=== PATIENT | male | born 1960 | race Caucasian/White ===

== ENCOUNTER 2016-05-02 18:00 | Inpatient (IN) | payer OTHER ==
[~2016-05-02] VITALS: Ht 193 cm; Wt 118.2 kg
--- NOTE | 2016-05-02 19:59 | DIAGNOSTIC IMAGING REPORT ---
PROCEDURE: XR CHEST 1 VIEW INDICATION: CHEST PAIN TECHNIQUE: Portable AP view (1845 hours). COMPARISON: Compared to chest x-ray on 10/13/2011. FINDINGS: Findings suggest mild parenchymal change at the left medial lung base. Right lung is clear. Heart and mediastinum are normal. Thorax is normal. IMPRESSION: 1. Findings suggest mild parenchymal changes at the left medial lung base (retrocardiac). Consider underlying atelectasis or pneumonia. 2. Otherwise negative chest. 3. Findings discussed with Dr. Jackson.
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
--- NOTE | 2016-05-02 21:09 | ED ORDER SUMMARY ---
..... Patient: VALENTIN GERBER JR OrderSheet [facility] VisitID: [id number] [address] [place] [address] 55y, M Registration Date/Time: 05/02/2016 ORDER SHEET Weight: 120.2 kg (stated) Allergies: No Known Drug Allergy GENERAL ORDERS: CBC w Diff Urgent (18:33 05/02/2016 Stephy R.N. verbal order read back to Adriana CLARKE) (18:34 Wadeelli R.N.) CMP Urgent (18:33 05/02/2016 Stephy R.N. verbal order read back to Adriana CLARKE) (18:34 Stephy R.N.) Blood Culture (No) (N/A) Urgent (18:44 05/02/2016 Adriana CLARKE) (Ack 18:46 LNations ER Tech1) (19:02 Stephy R.N.) Chest 1V Urgent (18:44 05/02/2016 Adriana CLARKE) (Ack 18:47 LNations ER Tech1) (19:08 MCampbell) Ferryboat Operator (Continuous) (18:44 05/02/2016 Adriana CLARKE) (Ack 18:46 LNations ER Tech1) (19:33 Stephy R.N.) TSH Urgent (18:45 05/02/2016 Adriana CLARKE) (Ack 18:46 LNations ER Tech1) (19:02 Stephy R.N.) Cardiac Panel Stat (18:45 05/02/2016 Adriana CLARKE) (Ack 18:47 LNations ER Tech1) (19:02 Stephy R.N.) BNP Urgent (18:45 05/02/2016 Adriana CLARKE) (Ack 18:47 LNations ER Tech1) (19:02 Stephy R.N.) Lactate, Serum Urgent (18:45 05/02/2016 Adriana CLARKE) (Ack 18:47 LNations ER Tech1) (19:27 AMcQuoid ER Tech1) PCT (Procalcitonin) Urgent (18:45 05/02/2016 Adriana CLARKE) (Ack 18:47 LNations ER Tech1) (19:27 AMcQuoid ER Tech1) CRP Urgent (18:45 05/02/2016 Adriana CLARKE) (Ack 18:47 LNations ER Tech1) (19:27 AMcQuoid ER Tech1) Pulse oximeter (18:45 05/02/2016 Adriana CLARKE) (Ack 18:46 LNations ER Tech1) (19:33 omanelli R.N.) EKG - ER Stat (18:45 05/02/2016 Adriana CLARKE) (Ack 18:46 LNations ER Tech1) (19:27 AMcQuoid ER Tech1) UA-Culture if indicated Urgent (18:50 05/02/2016 Adriana CLARKE) (Ack 18:54 LNations ER Tech1) (22:26 JRomanelli R.N.) Urine Drug Screen Urgent (18:50 05/02/2016 Adriana CLARKE) (Ack 18:54 LNations ER Tech1) (22:26 omanelli R.N.) US Venous Left Urgent (19:30 05/02/2016 Adriana CLRAKE) (Ack 19:32 AMcQuoid ER Tech1) (22:26 JRomanelli R.N.) Tibia/Fibula Left Urgent (19:50 05/02/2016 Adriana CLARKE) (Ack 19:51 AMcQuoid ER Tech1) (20:28 JRomanelli R.N.) MEDICATION ORDERS: IV FLUIDS: IV Saline Lock (18:33 05/02/2016 Stephy R.N. verbal order read back to Adriana CLARKE) (18:34 Wadeelli R.N.) IV NS : initial bolus 1000 mL (1000 mL/hr), then 500 mL/hr for 2h (NOW); Routine (18:44 05/02/2016 Adriana CLARKE) (19:04 Stephy R.N.) Toradol IV 30 mg (NOW) (18:50 05/02/2016 Adriana CLARKE) (19:07 Stephy R.N.) Ativan IV 0.5 mg (NOW) (18:50 05/02/2016 Adriana CLARKE) (19:08 Stephy R.N.) Vancomycin IV 2 gm/500 mL (NOW) (19:32 05/02/2016 Adriana CLARKE) (20:19 Stephy Hernández.Hilario) Invanz IV 1 gm (NOW) (19:32 05/02/2016 Adriana CLARKE) (19:57 Stephy Hernández.Hilario) Levaquin IV 750 mg/150 mL (NOW) (21:15 05/02/2016 Adriana CLARKE) (23:30 Rafa R.N.) Dilaudid IV 1 mg (NOW) (22:33 05/02/2016 Rafa R.N. verbal order read back to Peggy Jacobson) (22:42 Rafa RAdrianoNAdriano) ORDER SHEET NOTES: [Electronically signed by Destiny Garcia R.N. (23:39 05/02/2016)] [Electronically signed by Junito Jackson MD (15:31 05/03/2016)] [Electronically locked/signed by Destiny Garcia R.N. (23:39 05/02/2016)]
--- NOTE | 2016-05-02 21:09 | ED ORDER SUMMARY ---
..... Patient: VALENTIN GERBER JR OrderSheet [facility] VisitID: [id number] [address] [place] [address] 55y, M Registration Date/Time: 05/02/2016 ORDER SHEET Weight: 120.2 kg (stated) Allergies: No Known Drug Allergy GENERAL ORDERS: CBC w Diff Urgent (18:33 05/02/2016 Stephy R.N. verbal order read back to Adriana CLARKE) (18:34 Wadeelli R.N.) CMP Urgent (18:33 05/02/2016 Stephy R.N. verbal order read back to Adriana CLARKE) (18:34 Stephy R.N.) Blood Culture (No) (N/A) Urgent (18:44 05/02/2016 Adriana CLARKE) (Ack 18:46 LNations ER Tech1) (19:02 Stephy R.N.) Chest 1V Urgent (18:44 05/02/2016 Adriana CLARKE) (Ack 18:47 LNations ER Tech1) (19:08 MCampbell) Lining Feller Blindstitch (Continuous) (18:44 05/02/2016 Adriana CLARKE) (Ack 18:46 LNations ER Tech1) (19:33 Stephy R.N.) TSH Urgent (18:45 05/02/2016 Adriana CLARKE) (Ack 18:46 LNations ER Tech1) (19:02 Stephy R.N.) Cardiac Panel Stat (18:45 05/02/2016 Adriana CLARKE) (Ack 18:47 LNations ER Tech1) (19:02 Stephy R.N.) BNP Urgent (18:45 05/02/2016 Adriana CLARKE) (Ack 18:47 LNations ER Tech1) (19:02 Stephy R.N.) Lactate, Serum Urgent (18:45 05/02/2016 Adriana CLARKE) (Ack 18:47 LNations ER Tech1) (19:27 AMcQuoid ER Tech1) PCT (Procalcitonin) Urgent (18:45 05/02/2016 Adriana CLARKE) (Ack 18:47 LNations ER Tech1) (19:27 AMcQuoid ER Tech1) CRP Urgent (18:45 05/02/2016 Adriana CLARKE) (Ack 18:47 LNations ER Tech1) (19:27 AMcQuoid ER Tech1) Pulse oximeter (18:45 05/02/2016 Adriana CLARKE) (Ack 18:46 LNations ER Tech1) (19:33 omanelli R.N.) EKG - ER Stat (18:45 05/02/2016 Adriana CLARKE) (Ack 18:46 LNations ER Tech1) (19:27 AMcQuoid ER Tech1) UA-Culture if indicated Urgent (18:50 05/02/2016 Adriana CLARKE) (Ack 18:54 LNations ER Tech1) (22:26 JRomanelli R.N.) Urine Drug Screen Urgent (18:50 05/02/2016 Adriana CLARKE) (Ack 18:54 LNations ER Tech1) (22:26 omanelli R.N.) US Venous Left Urgent (19:30 05/02/2016 Adriana CLARKE) (Ack 19:32 AMcQuoid ER Tech1) (22:26 JRomanelli R.N.) Tibia/Fibula Left Urgent (19:50 05/02/2016 Adriana CLARKE) (Ack 19:51 AMcQuoid ER Tech1) (20:28 JRomanelli R.N.) MEDICATION ORDERS: IV FLUIDS: IV Saline Lock (18:33 05/02/2016 Stephy R.N. verbal order read back to Adriana CLARKE) (18:34 Wadeelli R.N.) IV NS : initial bolus 1000 mL (1000 mL/hr), then 500 mL/hr for 2h (NOW); Routine (18:44 05/02/2016 Adriana CLARKE) (19:04 Stephy R.N.) Toradol IV 30 mg (NOW) (18:50 05/02/2016 Adriana CLARKE) (19:07 Stephy R.N.) Ativan IV 0.5 mg (NOW) (18:50 05/02/2016 Adriana CLARKE) (19:08 Stephy R.N.) Vancomycin IV 2 gm/500 mL (NOW) (19:32 05/02/2016 Adriana CLARKE) (20:19 Stephy Hernández.Hilario) Invanz IV 1 gm (NOW) (19:32 05/02/2016 Adriana CLARKE) (19:57 Stephy Hernández.Hilario) Levaquin IV 750 mg/150 mL (NOW) (21:15 05/02/2016 Adriana CLARKE) (23:30 Rafa R.N.) Dilaudid IV 1 mg (NOW) (22:33 05/02/2016 Rafa R.N. verbal order read back to Peggy Jacobson) (22:42 Rafa RAdrianoNAdriano) ORDER SHEET NOTES: [Electronically signed by Destiny Garcia R.N. (23:39 05/02/2016)] [Electronically signed by Junito Jackson MD (15:31 05/03/2016)] [Electronically locked/signed by Destiny Garcia R.N. (23:39 05/02/2016)]
--- NOTE | 2016-05-02 22:15 | Progress Note ---
Subjective General Full note dictated 55 y.o male who stopped all his med around 1 year ago for heart etc who has 3-4 day hx of pain in L leg . Has hand lesion and sores as well. In ER with lung lesion on CXR retrocardiac, hand sore, leg cellulitis. Plan: Admit for abx IV, r/o endocarditis, ? embolic hand lesion , lung lesion and or cellulitis with murmur. Hx of CAD but no heart valve issues. Patient is DNR/DNI
--- NOTE | 2016-05-02 22:37 | DIAGNOSTIC IMAGING REPORT ---
PROCEDURE: XR TIBIA AND FIBULA - LEFT INDICATION: CELLULITIS TECHNIQUE: AP and lateral views. COMPARISON: None. 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 There is an old healed fracture of the left proximal fibula. Moderate generalized soft tissue edema of the left lower extremity. IMPRESSION: 1. Soft tissue swelling. 2. Otherwise negative left tibia and fibula.
--- NOTE | 2016-05-02 22:38 | DIAGNOSTIC IMAGING REPORT ---
PROCEDURE: US VENOUS - LEFT EXT INDICATION: SWELLING TECHNIQUE: Color Doppler duplex imaging of the deep and superficial venous system without and with compression. COMPARISON: None. FINDINGS: Deep and superficial venous system of the left lower extremity is within normal limits. There is no evidence of deep vein thrombosis or superficial thrombophlebitis. IMPRESSION: 1. Negative venous ultrasound of the left lower extremity.
--- NOTE | 2016-05-02 23:26 | HISTORY AND PHYSICAL ---
ADMITTED: 05/02/2016 CHIEF COMPLAINT: 1. Left leg pain, swelling, back pain and chronic spasms HISTORY OF PRESENT ILLNESS: The patient is a 55-year-old male who presented to the emergency department today with about 3-4 day history of worsening pain in his left lower extremity. He states he has always got some chronic back pain and he has also been having some chronic spasms that have gone up from his leg to his back. He has noted a little bit of a sore on his right hand as well and it started out as a little sore and then kind of blistered open and has now been trying to just watch that. He has had some fevers and has just not felt well. Denies any active chest pain, shortness of breath. MEDICAL/SURGICAL HISTORY: Past medical history: He has had arterial problems in his heart, was going to have a back surgery at one point and then was thinking about having a stent that treated, that did not actually happen. He has had an angioclipping in 1983 in his brain. He has had no previous injuries. He has got a history of hepatitis C. MEDICATIONS: 1. None. ALLERGIES: 1. NONE. SOCIAL HISTORY: He is single. Judaism. Has gone through twelfth grade. Has worked in [employer] in the past. He has smoked and he is currently smoking 2 cartons per month. He also smokes a little marijuana. Denies any alcohol or drug use. FAMILY HISTORY: Heart disease in mother and father. Also has a brother with multiple sclerosis. CODE STATUS: DO NOT RESUSCITATE/DO NOT INTUBATE. REVIEW OF SYSTEMS: Negative for GI or problems. He also has had frequent urination on his review of systems as mentioned above where he is peeing every hour, he states. PHYSICAL EXAMINATION: VITAL SIGNS: Blood pressure is 124/88, heart rate of 102, respirations 18, he is saturating 93% on room air. His temperature is 101.3, and he has significant back pain. GENERAL: He is an alert male who is laying on his side in the emergency department, appears to be in no acute distress. HEENT: Extraocular movements intact. Pupils equal, round, reactive to light. Oropharynx is clear with moist mucous membranes. He has got poor dentition with missing teeth above. NECK: Supple without lymphadenopathy. LUNGS: Clear to auscultation bilaterally. HEART: Regular rate and rhythm with a 2-3/6 systolic ejection murmur at the right lower sternal border. ABDOMEN: Obese, soft, it is nontender, nondistended. GENITOURINARY: Deferred. RECTAL: Deferred. EXTREMITIES: His right hand has superficial ulceration at the middle finger, it is kind at the knuckle, base of the middle MCP joint. LAB/IMAGING: Chest x-ray: Shows a round retrocardiac infiltrate. CBC: White count is 9.0, hematocrit 40.1, platelets of 138,000, neutrophils 76, lymphs of 11, monocytes 11, eosinophils 0.6, basophils 0.3. Comprehensive metabolic panel: Glucose 167, BUN of 14, creatinine 1.1, sodium 136, potassium 4.2, chloride of 100, HCO3 24, calcium 8.4, total protein 7, magnesium of 1.7. Albumin 2.6, total bili 0.4, alk phos 106, AST of 44, ALT of 48. CPK 78. Troponin I less than 0.05. Procalcitonin less than 0.05. TSH was 1.414. CRP of 10.2. BNP of 82. Chest x-ray: As mentioned, was the possible retrocardiac pneumonia. Lactic acid 1.6. EKG: Shows sinus rhythm, possible left atrial enlargement, no acute ST-T wave changes and nonspecific intraventricular conduction delay. IMPRESSION: 1. Fever. 2. Murmur. 3. Retrocardiac lesion or pneumonia. 4. Cellulitis. 5. History of heart abnormality. 6. Possible embolic sore on his hand. 7. Elevated CRP. 8. Normal lactic acid, procalcitonin and white count. PLAN: Admit him to the hospital for IV antibiotics. We will treat the cellulitis , the pneumonia, also wait for blood cultures. I will get an echocardiogram for his murmur and possible embolic lesions in hand and possibly even the retrocardiac pneumonia or cellulitis in his leg and we will potentially need to have further evaluation of his heart with transesophageal echocardiogram, if this is normal, and he does have blood cultures positive. We will follow his request for DO NOT RESUSCITATE/DO NOT INTUBATE status, and hold off on telemetry at this time due to his desire for no interventions of cardiopulmonary resuscitation sort. We will treat him with a small amount of IV fluids and monitor his blood counts.
[2016-05-03] VITALS (7 sets, daily range): BP systolic 104–131; BP diastolic 60–80
[2016-05-03] MEDS ORDERED: ASPIRIN325 MG PO (00:33)
--- NOTE | 2016-05-03 15:31 | ED MED RECONCILIATION SUMMARY ---
Patient: ZABRINA VALENTIN Meyer JR Medication Reconciliation Report [facility] VisitID: [id number] [address] [place] [address] 55y, M Registration Date/Time: 05/02/2016 Weight: 120.2 kg Height/Length: 76 in. BMI: 32.3 ALLERGIES: No Known Drug Allergy The patient's Home Medications are listed below: THE FOLLOWING MEDICATIONS NEED TO BE RECONCILED: ASA Oral, prn The source(s) of the original Home Medication information: patient The following Medications were given to the patient in the Emergency Department: IV NS IV Fluids bolus 0, then 1000 mL/hr, administered: 05/02/2016 6:49:00 PM Toradol [IVP] IVP 30 mg, administered: 05/02/2016 6:57:00 PM Ativan [IVP] IVP 0.5 mg, administered: 05/02/2016 7:01:00 PM Invanz [IVP] IVP 1 gm, administered: 05/02/2016 7:47:00 PM Vancomycin IVPB bolus 0, then 2000mg, administered: 05/02/2016 8:14:00 PM Dilaudid [IVP] IVP 1 mg, administered: 05/02/2016 10:42:00 PM Levaquin [IVPB] IVPB bolus 0, then 750 mg 150 mL/hr, administered: 05/02/2016 11:30:00 PM The following Medications were prescribed to the patient: None.
--- NOTE | 2016-05-03 15:31 | ED MED RECONCILIATION SUMMARY ---
Patient: ZABRINA VALENTIN Meyer JR Medication Reconciliation Report [facility] VisitID: [id number] [address] [place] [address] 55y, M Registration Date/Time: 05/02/2016 Weight: 120.2 kg Height/Length: 76 in. BMI: 32.3 ALLERGIES: No Known Drug Allergy The patient's Home Medications are listed below: THE FOLLOWING MEDICATIONS NEED TO BE RECONCILED: ASA Oral, prn The source(s) of the original Home Medication information: patient The following Medications were given to the patient in the Emergency Department: IV NS IV Fluids bolus 0, then 1000 mL/hr, administered: 05/02/2016 6:49:00 PM Toradol [IVP] IVP 30 mg, administered: 05/02/2016 6:57:00 PM Ativan [IVP] IVP 0.5 mg, administered: 05/02/2016 7:01:00 PM Invanz [IVP] IVP 1 gm, administered: 05/02/2016 7:47:00 PM Vancomycin IVPB bolus 0, then 2000mg, administered: 05/02/2016 8:14:00 PM Dilaudid [IVP] IVP 1 mg, administered: 05/02/2016 10:42:00 PM Levaquin [IVPB] IVPB bolus 0, then 750 mg 150 mL/hr, administered: 05/02/2016 11:30:00 PM The following Medications were prescribed to the patient: None.
--- NOTE | 2016-05-03 15:31 | ED DISCHARGE INSTRUCTIONS ---
Patient: VALENTIN GERBER General Instructions [facility] VisitID: [id number] [address] [place] [address] 55y, M Registration Date/Time: 05/02/2016 Cellulitis of the left leg Erosion left hand Fever LLL pneumonia Mild chest pain uinclear etiology. (Electronically signed by Junito Jackson MD 05/03/2016 15:31)
--- NOTE | 2016-05-03 15:31 | ED MAR SUMMARY ---
..... Medication Administration Record [facility] [address] [place] [address] Patient: VALENTIN GERBER Visit ID: [id number] 55y, M Weight: 120.2 kg Height/Length: 76 in BMI: 32.3 ALLERGIES: No Known Drug Allergy Start 18:49 05/02/2016 Osmar Ramos R.N., Stop 22:14 05/02/2016 Destiny Garcia R.N. Medication Administered: IV NS (SALINE), Dose: IV Fluids over 60 minute(s), Rate: 1000 mL/hr, Dispensed: 1000 mL bag, Site: #1 right wrist. Medication Ordered: IV NS : initial bolus 1000 mL (1000 mL/hr), then 500 mL/hr for 2h (NOW); Routine. Given 18:57 05/02/2016 Osmar Ramos R.N. Medication Administered: TORADOL [IVP], Dose: 30 mg IVP over 2 minute(s), Site: #1 right wrist. Medication Ordered: Toradol IV 30 mg (NOW). Given 19:01 05/02/2016 Osmar Ramos R.N. Medication Administered: ATIVAN [IVP] (LORAZEPAM), Dose: 0.5 mg IVP over 2 minute(s), Site: #1 right wrist. Medication Ordered: Ativan IV 0.5 mg (NOW). Given 19:47 05/02/2016 Osmar Ramos R.N. Medication Administered: INVANZ [IVP], Dose: 1 gm IVP over 30 minute(s), Site: #1 right wrist. Medication Ordered: Invanz IV 1 gm (NOW). Start 20:14 05/02/2016 Osmar Ramos R.N., Stop 22:18 05/02/2016 Jazmin Philip R.N. Medication Administered: Vancomycin *, Dose: 2000mg * IVPB. Medication Ordered: Vancomycin IV 2 gm/500 mL (NOW). Given 22:42 05/02/2016 Destiny Garcia R.N. Medication Administered: DILAUDID [IVP] (HYDROMORPHONE HCL PF), Dose: 1 mg IVP over 2 minute(s), Site: #1. Medication Ordered: Dilaudid IV 1 mg (NOW). Start 23:30 05/02/2016 Destiny Garcia RAdrianoN., Continued Upon Disposition 23:31 05/02/2016 Destiny Garcia R.N. Medication Administered: LEVAQUIN [IVPB] (LEVOFLOXACIN), Dose: 750 mg IVPB over 1.5 hour(s), Rate: 150 mL/hr, Site: #1. Medication Ordered: Levaquin IV 750 mg/150 mL (NOW).
--- NOTE | 2016-05-03 15:31 | ED DISCHARGE INSTRUCTIONS ---
Patient: VALENTIN GERBER General Instructions [facility] VisitID: [id number] [address] [place] [address] 55y, M Registration Date/Time: 05/02/2016 Cellulitis of the left leg Erosion left hand Fever LLL pneumonia Mild chest pain uinclear etiology. (Electronically signed by Junito Jackson MD 05/03/2016 15:31)
--- NOTE | 2016-05-03 15:31 | ED MAR SUMMARY ---
..... Medication Administration Record [facility] [address] [place] [address] Patient: VALENTIN GERBER Visit ID: [id number] 55y, M Weight: 120.2 kg Height/Length: 76 in BMI: 32.3 ALLERGIES: No Known Drug Allergy Start 18:49 05/02/2016 Osmar Ramos R.N., Stop 22:14 05/02/2016 Destiny Garcia R.N. Medication Administered: IV NS (SALINE), Dose: IV Fluids over 60 minute(s), Rate: 1000 mL/hr, Dispensed: 1000 mL bag, Site: #1 right wrist. Medication Ordered: IV NS : initial bolus 1000 mL (1000 mL/hr), then 500 mL/hr for 2h (NOW); Routine. Given 18:57 05/02/2016 Osmar Ramos R.N. Medication Administered: TORADOL [IVP], Dose: 30 mg IVP over 2 minute(s), Site: #1 right wrist. Medication Ordered: Toradol IV 30 mg (NOW). Given 19:01 05/02/2016 Osmar Ramos R.N. Medication Administered: ATIVAN [IVP] (LORAZEPAM), Dose: 0.5 mg IVP over 2 minute(s), Site: #1 right wrist. Medication Ordered: Ativan IV 0.5 mg (NOW). Given 19:47 05/02/2016 Osmar Ramso R.N. Medication Administered: INVANZ [IVP], Dose: 1 gm IVP over 30 minute(s), Site: #1 right wrist. Medication Ordered: Invanz IV 1 gm (NOW). Start 20:14 05/02/2016 Osmar Ramos R.N., Stop 22:18 05/02/2016 Jazmin Philip R.N. Medication Administered: Vancomycin *, Dose: 2000mg * IVPB. Medication Ordered: Vancomycin IV 2 gm/500 mL (NOW). Given 22:42 05/02/2016 Destiny Garcia R.N. Medication Administered: DILAUDID [IVP] (HYDROMORPHONE HCL PF), Dose: 1 mg IVP over 2 minute(s), Site: #1. Medication Ordered: Dilaudid IV 1 mg (NOW). Start 23:30 05/02/2016 Destiny Garcia RAdrianoN., Continued Upon Disposition 23:31 05/02/2016 Destiny Garcia R.N. Medication Administered: LEVAQUIN [IVPB] (LEVOFLOXACIN), Dose: 750 mg IVPB over 1.5 hour(s), Rate: 150 mL/hr, Site: #1. Medication Ordered: Levaquin IV 750 mg/150 mL (NOW).
--- NOTE | 2016-05-03 17:28 | Progress Note ---
Subjective General Pt seen and examined. Patient is stable and has complaints stemming from the swelling in his leg. Patient vehemently denies taking opiods, amphetamines despite his urine being positive for the aforementioned. Patients cellulitis is improved. Constitutional Denies: Fever, Chills, Sweats, Weakness, Malaise, Other. Eyes Denies: Pain, Vision Change, Conjunctival Inflammation, Eyelid Inflammation, Redness, Other. ENT Denies: Ear Pain, Ear Discharge, Nose Pain, Nasal Discharge, Nasal Congestion, Mouth Pain, Mouth Swelling, Throat Pain, Throat Swelling, Other. Respiratory Denies: Cough, Dry, SOB w/exertion, Wheezing, Hemoptysis, Pleuritic Pain, Sputum , Other. Cardiovascular Denies: Chest Pain, Palpitations, Orthopnea, PND, Edema, Light-headedness, Other. Gastrointestinal Denies: Nausea, Vomiting, Abdominal Pain, Diarrhea, Constipation, Melena, Hematochezia, Other. Genitourinary Denies: Dysuria, Frequency, Incontinence, Hematuria, Retention, Other. Musculoskeletal Denies: Neck Pain, Shoulder Pain, Arm Pain, Back Pain, Hand Pain, Leg Pain, Foot Pain, Other. Skin Other. Physical Exam Vital Signs / I&Os Vital Signs Date Time Temp Pulse Resp B/P Pulse O2 O2 Flow FiO2 Ox Delivery Rate 05/03 1438 98.1 75 24 116/67 100 Room Air 05/03 1026 98.6 82 18 115/61 99 Room Air 05/03 0943 Room Air 05/03 0709 98.4 92 20 130/62 100 Room Air 0.0 05/03 0427 98.4 101 20 131/63 98 Room Air 05/03 0013 98.8 90 18 115/67 100 Room Air 0.0 General Appearance Alert, Oriented X3, No acute distress HEENT Normal exam, Moist mucous membranes Lungs Clear to auscultation, Normal air movement Cardiovascular Regular rate and rhythm, Normal S1 and S2, No murmurs, gallops, rubs Abdomen Soft, No tenderness Extremities No cyanosis, No clubbing, left leg swelling venous stasis erythema Skin two punctate lesions one located on the left hand and one on the pretibial area of the left leg Neurological Normal speech, Normal tone Psych/Mental Status Mental status normal LAB Results Laboratory Tests 05/02 05/02 05/02 05/02 05/02 1815 1835 1835 1835 1835 Chemistry Plasma Sodium (136 - 145 mmol/L) 136 Plasma Potassium (3.5 - 5.1 mmol/L) 4.2 Plasma Chloride (98 - 107 mmol/L) 100 CO2 (Enzymatic) (21 - 32 mmol/L) 24 BUN (7 - 18 mg/dL) 14 Creatinine (0.6 - 1.3 mg/dL) 1.1 Est GFR ( Amer) (mL/min) >60 Est GFR (Non-Af Amer) (mL/min) >60 Glucose (70 - 110 mg/dL) 167 Plasma Calcium (8.5 - 10.1 mg/dL) 8.4 Plasma Magnesium (1.8 - 2.4 mg/dL) 1.7 Total Bilirubin (0.0 - 1.0 mg/dL) 0.4 AST (15 - 37 U/L) 44 ALT (12 - 78 U/L) 48 Alkaline Phosphatase (46 - 116 U/L) 106 Creatine Kinase (24 - 260 U/L) 78 Troponin (0.00 - 1.5 ng/mL) <0.05 C-Reactive Protein (0.0 - 0.9 mg/dL) 10.2 B-Natriuretic Peptide (5 - 100 pg/ml) 82.4 Total Protein (6.4 - 8.2 g/dL) 7.0 Albumin (3.3 - 5.0 g/dL) 2.6 Procalcitonin (0 - 0.5 ng/mL) <0.5 TSH 3rd Generation (0.34 - 3.74 uIU/mL) 1.414 Hematology WBC (4.5 - 11.5 K/uL) 9.0 RBC (4.50 - 5.90 M/uL) 4.66 Hgb (13.5 - 17.5 gm/dL) 13.6 Hct (41.0 - 53.0 %) 40.1 MCV (80 - 100 fL) 86 MCH (26 - 34 pg) 29 RDW (11.6 - 14.8 %) 13.0 Neut % (Auto) (50 - 75 %) 76.6 Lymph % (Auto) (25 - 40 %) 11.4 [place] % (Auto) (3 - 14 %) 11.1 Eos % (Auto) (0 - 4 %) 0.6 Baso % (Auto) (0 - 2 %) 0.3 Plt Count, EDTA (150 - 400 K/uL) 138 PUBS MCHC (31 - 37 g/dL) 34 05/02 05/02 05/02 1845 1900 2155 Chemistry Lactic Acid (0.4 - 2.0 mmol/L) 1.6 Hematology WBC Cancelled RBC Cancelled Hgb Cancelled Hct Cancelled MCV Cancelled MCH Cancelled RDW Cancelled Plt Count, EDTA Cancelled PUBS MCHC Cancelled Toxicology Urine Opiates Screen (NEGATIVE) NEGATIVE Urine Methadone Screen (NEGATIVE) NEGATIVE Ur Barbiturates Screen (NEGATIVE) NEGATIVE U Amphetamin/Meth Scrn (NEGATIVE) POSITIVE MDMA (Ecstasy) Screen (NEGATIVE) POSITIVE U Benzodiazepines Scrn (NEGATIVE) NEGATIVE Urine Cocaine Screen (NEGATIVE) NEGATIVE U Cannabinoids Screen (NEGATIVE) POSITIVE Urines Urine Color YELLOW Urine Appearance CLEAR Urine pH (5.0 - 8.0) 6.5 Ur Specific Victor (1.010 - 1.030) 1.020 Urine Protein (NEGATIVE) NEGATIVE Urine Ketones (NEGATIVE) NEGATIVE Urine Blood (NEGATIVE) NEGATIVE Urine Nitrite (NEGATIVE) NEGATIVE Urine Bilirubin (NEGATIVE) NEGATIVE Urine Urobilinogen (0.2 - 1.0 EU/dL) 1.0 Ur Leukocyte Esterase (NEGATIVE) NEGATIVE Urine RBC (0 - 1 rbc/hpf) 0-1 Urine WBC (0 - 1 wbc/hpf) 1-3 Ur Epithelial Cells (0 - 5 EPI/hpf) 3-5 Urine Bacteria (NONE SEEN) NONE SEEN Urine Glucose (NEGATIVE) NEGATIVE Urine Comment CULT NOT INDICATED 05/03 0555 Hematology WBC (4.5 - 11.5 K/uL) 7.8 RBC (4.50 - 5.90 M/uL) 4.28 Hgb (13.5 - 17.5 gm/dL) 12.5 Hct (41.0 - 53.0 %) 37.1 MCV (80 - 100 fL) 87 MCH (26 - 34 pg) 29 RDW (11.6 - 14.8 %) 12.8 Neut % (Auto) (50 - 75 %) 66.3 Lymph % (Auto) (25 - 40 %) 16.1 [place] % (Auto) (3 - 14 %) 15.9 Eos % (Auto) (0 - 4 %) 1.4 Baso % (Auto) (0 - 2 %) 0.3 Plt Count, EDTA (150 - 400 K/uL) 143 PUBS MCHC (31 - 37 g/dL) 34 Microbiology Date/Time Procedure - Status Source Growth 05/03 UNK Superficial Wound Culture - COLB HAND 05/03 UNK Gram Stain - COLB HAND 05/03 UNK MRSA Screen - RECD NASAL 05/02 1900 Blood Culture - RECD BLOOD 05/02 1815 Blood Culture - RECD BLOOD Assessment and Plan Problem List 1. Cellulitis Plan - will continue with antibiotics - will continue with leg elevation while in bed - will obtain daily cbcs 2. Murmur Plan - echo performed - will follow up on results tomorrow
--- NOTE | 2016-05-03 18:58 | DIAGNOSTIC IMAGING REPORT ---
REFERRING PHYSICIAN/PROVIDER: Dallin Cintron MD CONSULTING DIRECTOR OF PULMONARY UNIT: Goyo Krishnan MD PROCEDURE: M-mode 2D echocardiography with spectral and color flow Doppler TECHNICAL QUALITY: Poor INDICATION: fever, murmur, sores RHYTHM DURING PROCEDURE: Undetermined INTERPRETATIONS: LEFT VENTRICLE: The left ventricle is severely dilated in size with an LV end-diastolic dimension of 7.1 cm and the end-systolic dimension of 6.1 cm. The wall thickness is mildly increased and the left ventricular systolic function appears globally reduced with an ejection fraction of 45%. Diastolic function could not be accurately assessed. RIGHT VENTRICLE: The right ventricle is normal in size and function ATRIA: Both atria appear normal in size. Unable to determine if the interatrial septum is intact. MITRAL VALVE: The mitral valve appears grossly normal. There is no evidence of any medications noted. There is trace to mild mitral regurgitation noted. There is mitral annular calcification noted. AORTIC VALVE: The aortic valve leaflets are not well visualized. Cannot definitively exclude a bicuspid aortic valve. There is no significant aortic stenosis or aortic regurgitation noted. TRICUSPID VALVE: The tricuspid valve leaflets appeared thin and pliable. There is trace tricuspid regurgitation noted. There do not appear to be any vegetations noted. PULMONIC VALVE: Pulmonic valve is not well visualized. There is trace pulmonic valvular regurgitation noted. GREAT VESSELS: The aortic root is mildly dilated measuring 4.5 cm at the sinus of Valsalva. PERICARDIUM: There is no significant pericardial effusion noted. IMPRESSION: 1. Mild concentric left ventricular hypertrophy noted. 2. Severely dilated left ventricle with mildly reduced left ventricular systolic function (LVEF = 45%) with global hypokinesis 3. Normal biatrial size 4. No significant valvular disease 5. No evidence of valvular vegetation or thrombus 6. Dilated aortic root at the sinuses of Valsalva measuring 4.5 cm
[2016-05-04 03:17] VITALS: BP 103/65
[2016-05-04 07:23] VITALS: BP 96/39
[2016-05-04 14:50] VITALS: BP 106/57
[2016-05-04 18:02] VITALS: BP 102/55
--- NOTE | 2016-05-04 18:24 | Progress Note ---
Subjective General Pt seen and examined. Patient was verbally abusvie to staff in the am because of his pain. Patient was explained to that he must treat everyone curteously and to explain his needs coherently and without malice. Patients pain medications were adjusted accordingly. Patient otherwise has a stable picture of cellulitis. Constitutional Denies: Fever, Chills, Sweats, Weakness, Malaise, Other. Eyes Denies: Pain, Vision Change, Conjunctival Inflammation, Eyelid Inflammation, Redness, Other. ENT Denies: Ear Pain, Ear Discharge, Nose Pain, Nasal Discharge, Nasal Congestion, Mouth Pain, Mouth Swelling, Throat Pain, Throat Swelling, Other. Respiratory Denies: Cough, Dry, SOB w/exertion, Wheezing, Hemoptysis, Pleuritic Pain, Sputum , Other. Cardiovascular Denies: Chest Pain, Palpitations, Orthopnea, PND, Edema, Light-headedness, Other. Gastrointestinal Denies: Nausea, Vomiting, Abdominal Pain, Diarrhea, Constipation, Melena, Hematochezia, Other. Genitourinary Denies: Dysuria, Frequency, Incontinence, Hematuria, Retention, Other. Musculoskeletal Hand Pain, Leg Pain. Denies: Neck Pain, Shoulder Pain, Arm Pain, Back Pain, Foot Pain, Other. Skin Denies: Rash, Lesions, Jaundice, Bruising, Other. Neurological Denies: Weakness, Numbness, Incoordination, Change in speech, Confusion, Seizures, Other. Physical Exam Vital Signs / I&Os Vital Signs Date Time Temp Pulse Resp B/P Pulse O2 O2 Flow FiO2 Ox Delivery Rate 05/04 1802 97.9 74 20 102/55 97 Room Air 05/04 1450 97.9 66 20 106/57 99 Room Air 0.0 05/04 0820 Room Air 05/04 0723 98.2 76 20 96/39 96 Room Air 0.0 05/04 0317 98.4 81 20 103/65 94 05/03 2319 99.3 93 16 104/60 95 Room Air 05/03 2041 Room Air 05/03 1847 98.6 93 24 125/80 96 Room Air I&O 05/03 0800 05/03 1600 05/04 0000 Intake Total 099 400 1181 Output Total 889 286 8884 Balance 346 -90 773 General Appearance Alert, Oriented X3, Mild distress HEENT Atraumatic, PERRLA, Moist mucous membranes Lungs Clear to auscultation, Normal air movement Cardiovascular Regular rate and rhythm, Normal S1 and S2, No murmurs, gallops, rubs Abdomen Soft, No tenderness Extremities No cyanosis, No clubbing, - persistent cellulitis with venous stasis Skin No Rashes Neurological Normal gait, Normal speech, Normal tone, Sensation intact, Reflexes 2+ and equal, Cranial nerves intact, Strength 5/5 x4 ext's LAB Results Laboratory Tests 05/04 05/04 0555 1321 Chemistry Plasma Sodium (136 - 145 mmol/L) 135 Plasma Potassium (3.5 - 5.1 mmol/L) 4.5 Plasma Chloride (98 - 107 mmol/L) 101 CO2 (Enzymatic) (21 - 32 mmol/L) 28 BUN (7 - 18 mg/dL) 10 Creatinine (0.6 - 1.3 mg/dL) 0.9 Est GFR ( Amer) (mL/min) >60 Est GFR (Non-Af Amer) (mL/min) >60 Glucose (70 - 110 mg/dL) 115 Plasma Calcium (8.5 - 10.1 mg/dL) 7.9 Total Bilirubin (0.0 - 1.0 mg/dL) 0.7 AST (15 - 37 U/L) 30 ALT (12 - 78 U/L) 37 Alkaline Phosphatase (46 - 116 U/L) 100 Total Protein (6.4 - 8.2 g/dL) 6.1 Albumin (3.3 - 5.0 g/dL) 2.4 Hematology WBC (4.5 - 11.5 K/uL) 9.8 RBC (4.50 - 5.90 M/uL) 4.35 Hgb (13.5 - 17.5 gm/dL) 12.8 Hct (41.0 - 53.0 %) 37.7 MCV (80 - 100 fL) 87 MCH (26 - 34 pg) 29 RDW (11.6 - 14.8 %) 12.8 Neut % (Auto) (50 - 75 %) 71.4 Lymph % (Auto) (25 - 40 %) 12.3 [place] % (Auto) (3 - 14 %) 12.8 Eos % (Auto) (0 - 4 %) 3.2 Baso % (Auto) (0 - 2 %) 0.3 Plt Count, EDTA (150 - 400 K/uL) 163 PUBS MCHC (31 - 37 g/dL) 34 Toxicology Vancomycin Trough (10.0 - 20.0 ug/mL) 15.2 Microbiology Date/Time Procedure - Status Source Growth 05/04 1300 Superficial Wound Culture - RES DRAINAGE 05/04 1300 Gram Stain - RES DRAINAGE 05/04 UNK Superficial Wound Culture - RES HAND 05/04 UNK Gram Stain - RES HAND Assessment and Plan Problem List 1. Cellulitis Plan - will continue with antibiotics - pt explained to keep his leg eleveated as much as possible - will continue with daily blood draws 2. Murmur Plan - present on exam - echo is completely normal - no further investigation
[2016-05-04 23:27] VITALS: BP 129/75
[2016-05-05 07:21] VITALS: BP 104/64
--- NOTE | 2016-05-31 10:41 | Discharge Summary ---
Discharge Summary Report Admit Date 05/02/16 Discharge Date 06/01/16 Admission Diagnosis lower extremity cellulitis Discharge Diagnosis lower extremity cellulitis, left ama Brief History The patient is a 55-year-old male who presented to the emergency department today with about 3-4 day history of worsening pain in his left lower extremity. He states he has always got some chronic back pain and he has also been having some chronic spasms that have gone up from his leg to his back. He has noted a little bit of a sore on his right hand as well and it started out as a little sore and then kind of blistered open and has now been trying to just watch that. He has had some fevers and has just not felt well. Denies any active chest pain, shortness of breath. Hospital Course Patient was admitted for lower extremity cellulitis. Patient was treated with IV antibioitics. Given the presence of a heart murmur that the patient claimed was not present before the patient was scheduled for an echocardiogram. Patient was tolerating the iv antibioitics however the patients pain was out of proportion for the pathology that was being treated. Patient did not have any underlying evidence of pahtology that was being overlooked. Patient became abusive towards the staff and refused to comply with the simplest of prompts including urinating in the toilet, and changing out of his urine soaked clothing. When patient was told he could not make demands regarding his pain medication type he decided to leave against medical advise. Patient was urged to stay to find the results of his echocardiogram which he refused to do. General Appearance Alert, Oriented X3, No acute distress Discharge Instructions/Meds - pt left against medical advice - pt urged to follow up with echocardiogram results
== END 2016-05-05 13:15 | disposition left against medical advice (07) | DRG 383 ==
LOC: ED SRH 18:00 → TRANS SRH 21:58 → ACUTE2 SRH 21:58
PROVIDERS: ADMIT Emergency Medicine
DX: L03.116 Cellulitis of left lower limb (principal); L98.499 Non-pressure chronic ulcer of skin of other sites with unspecified severity; R01.1 Cardiac murmur, unspecified; J18.9 Pneumonia, unspecified organism; R50.9 Fever, unspecified; R79.82 Elevated C-reactive protein (CRP); M54.5 Low back pain; R35.0 Frequency of micturition; B18.2 Chronic viral hepatitis C; Z72.0 Tobacco use

== ENCOUNTER 2016-05-06 11:49 | Emergency (ER) | payer OTHER ==
[~2016-05-06 11:49] MED LIST: ASPIRIN325 MG PO
--- NOTE | 2016-05-06 17:13 | ED ORDER SUMMARY ---
..... Patient: VALENTIN GERBER JR OrderSheet [facility] VisitID: [id number] [address] [place] [address] 55y, M Registration Date/Time: 05/06/2016 ORDER SHEET Weight: 122.4 kg (stated) Allergies: No Known Drug Allergy GENERAL ORDERS: CBC w Diff Urgent (13:00 05/06/2016 DDean R.N. per protocol) (13:03 LNations ER Tech1) BMP Urgent (13:00 05/06/2016 DDean R.N. per protocol) (13:03 LNations ER Tech1) Diet (Please order in [employer]) (Regular Diet) (17:13 05/06/2016 LNations ER Tech1 verbal order read back to Elaine CLARKE) (17:13 LNations ER Tech1) MEDICATION ORDERS: Dilaudid IM 1 mg (HIGH ALERT MEDICATION, NOW) (13:39 05/06/2016 Elaine CLARKE) (Cancelled: Other13:40 Elaine CLARKE) - (400mg IV x 1) (17:30 05/06/2016 Elaine CLARKE) (Cancelled: Other17:39 Elaine CLARKE) - (Daptomycin 400mg IV x 1) (17:40 05/06/2016 Elaine CLARKE) (18:38 DDean R.N.) IV FLUIDS: IV Saline Lock (12:47 05/06/2016 LSullivan R.N. verbal order read back to Elaine CLARKE) (12:48 LSullivan R.N.) Vancomycin IV 1.5 gm/500 mL (NOW) (13:39 05/06/2016 Elaine CLARKE) (Ack 13:54 DDean R.N.) (Cancelled: Other14:17 MWinterer R.N.) Dilaudid IV 2 mg (HIGH ALERT MEDICATION, NOW) (13:40 05/06/2016 Elaine CLARKE) (Ack 13:53 DDean R.N.) (14:09 DDean R.N.) IV NS : initial bolus none -, then 150 mL/hr for X1 (NOW) (14:10 05/06/2016 DDean R.N. per protocol) (14:11 DDean R.N.) Vancomycin IV 2 gm/500 mL (NOW) (14:17 05/06/2016 MWinterer R.N. verbal order read back to Elaine CLARKE) (Ack 14:18 MWinterer R.N.) (14:21 DDean R.N.) Zofran IV 4 mg (NOW) (14:24 05/06/2016 DDean R.N. per protocol) (14:25 DDean R.N.) Dilaudid IV 2 mg (HIGH ALERT MEDICATION, NOW) (16:33 05/06/2016 Elaine CLARKE) (16:41 DDean R.N.) Dilaudid IV 2 mg (NOW) (16:40 05/06/2016 DDean R.N. verbal order read back to Elaine CLARKE) (Cancelled: Duplicate Order16:40 DDean R.N.) ORDER SHEET NOTES: [Electronically signed by Ashley Olivo R.N. (20:16 05/06/2016)] [Electronically signed by Odette Capps MD (08:52 05/10/2016)] [Electronically locked/signed by Ashley Olivo R.N. (20:16 05/06/2016)]
--- NOTE | 2016-05-06 17:13 | ED CLINICAL REPORT ---
Clinical Report - Physicians/Mid Levels [facility] [address] [place] [address] 05/06/2016 11:51 Patient: VALENTIN GERBER JR Time Seen: 12:42. Arrived- By private vehicle. Historian- patient. HISTORY OF PRESENT ILLNESS Chief Complaint: (cellulitis, L leg pain). This started about 1 week ago and is still present. It is described as painful. It has been located on the left lower extremity. No cause has been identified. He has recently taken medication (PT was on vancomycin, and recently in the hospital. He left AMA yesterday.). Similar symptoms previously: None. Recent medical care: The patient was seen recently at this facility and hospitalized. REVIEW OF SYSTEMS No fever, chills, sore throat, cough or difficulty breathing. No hoarseness, enlarged lymph nodes, headache, eye irritation or chest pain. No abdominal pain, nausea, diarrhea, difficulty with urination or joint pain. No vomiting. All systems otherwise negative, except as recorded above. PAST HISTORY Problems: Degenerative Joint Disease. Tetanus Status. Brain Aneurysm. Chronic Back Pain. Coronary Artery Disease. Immunizations. Sciatica. Intervertebral Disc Disease. Arthritis. Additional Surgeries: Brain surgery. Medications: None. Allergies: No Known Drug Allergy. SOCIAL HISTORY Smoker- current status unknown. History of drug use: marijuana. No alcohol use. ADDITIONAL NOTES The nursing notes have been reviewed. PHYSICAL EXAM Vital Signs: 05/06/2016 11:55 BP: 108/77. HR: 92. RR: 24. O2 saturation: 100%. Temp: 98 F. Pain level now: 1010. Have been reviewed. Appearance: Alert. Oriented X3. No acute distress. Eyes: Pupils equal, round and reactive to light. Conjunctivae and eyelids normal. ENT: Nose normal. Neck: Neck supple. CVS: Normal heart rate and rhythm. Heart sounds normal. Respiratory: No respiratory distress. Breath sounds normal. Abdomen: Nontender. No organomegaly. Skin: Large area of cellulitis with tenderness, erythema and warmth to left leg (PT has a wound care dressing over a small ulcer on his L lateral lower leg. Cellulitis extends from several cm below the pt's knee to the ankle, and is nearly circumferential. No fluctuance or induration.). Extremities: (Cellulitis, as above; no other abnormalities.). Neuro: Oriented X 3. No motor deficit. No sensory deficit. LABS, X-RAYS, AND EKG Laboratory Tests: CBC w Diff: (XOCHILT: 05/06/2016 13:23) ( [facility] 05/06/2016 13:38) Final results Test Result Flag Units (Reference) WHITE BLOOD COUNT 11.7 H K/uL (4.5-11.5) RED BLOOD COUNT 4.67 M/uL (4.50-5.90) HEMOGLOBIN 13.5 gm/dL (13.5-17.5) HEMATOCRIT 40.4 L % (41.0-53.0) MEAN CELL VOLUME 87 fL (80-100) MEAN CORPUSCULAR HGB 29 pg (26-34) MEAN CORPUSCULAR HGB CONC 34 g/dL (31-37) RED CELL DISTRIBUTION WIDTH 12.6 % (11.6-14.8) PLATELET COUNT 303 K/uL (150-400) NEUTROPHIL % 73.8 % (50-75) LYMPH % 12.5 L % (25-40) MONO % 10.9 % (3-14) EOSINOPHIL % 2.4 % (0-4) BASOPHIL % 0.4 % (0-2) BMP: (XOCHILT: 05/06/2016 13:23) ( [facility] 05/06/2016 14:55) Final results Test Result Flag Units (Reference) GLUCOSE 109 mg/dL (70-110) BUN 12 mg/dL (7-18) CREATININE 1.0 mg/dL (0.6-1.3) Estimated GFR >60 mL/min Estimated GFR- >60 mL/min Note: Persistent reduction over 3 months in eGFR<60 mL/min/1.73 m2 defines CKD. Patients with eGFR values>=60 mL/min/1.73 m2 may also have CKD if evidence ofpersistent proteinuria. Additional information may be foundat [email or web address].org. SODIUM 141 mmol/L (136-145) POTASSIUM 4.4 # mmol/L (3.5-5.1) CHLORIDE 104 mmol/L (98-107) CARBON DIOXIDE 30 mmol/L (21-32) CALCIUM 8.7 mg/dL (8.5-10.1) . Pulse Oximetry: 05/06/2016 11:55 O2 saturation: 100%. (FIO2 - room air). Interpretation: normal. PROGRESS AND PROCEDURES Course of Care: PT was given IV vancomycin in the ED. Bloodwork showed a mildly elevated WBC count. I did speak with Dr. Guzman regarding admission, as pt stated he did not have transportation to come back for daily IV antibiotics as an outpatient. Dr. Guzman and Riccardo (nursing utilities and maintenance supervisor) were able to arrange [facility] and outpatient IV abx for the pt here. I did feel this was reasonable, as pt had no fever and a minimal leukocytosis, and did not appear clinically ill. Plan was explained to the pt, and he is aware that he will need to call tomorrow to set up a time for [facility] to pick him up. Patient counseled in person regarding the patient's stable condition, test results, diagnosis and need for follow-up. Concerns were addressed. Old medical records reviewed. Disposition: Discharged. Condition: stable. CLINICAL IMPRESSION Cellulitis of the left lower leg. INSTRUCTIONS (You will need to return tomorrow between noon and 6 pm, to receive your next dose of antibiotics. Please call [facility] ( ) to get a ride to the hospital tomorrow. When you check in at the front loader residential driver, tell them you are here to receive a dose of IV antibiotics. To help with pain, take the pain meds, as needed, and keep your leg elevated as much as possible.). Warnings: SEDATIVE MEDICATION: You were given sedative medication during your visit. Do not drive or operate dangerous machinery for 6 hours. GENERAL WARNINGS: Return or contact your physician immediately if your condition worsens or changes unexpectedly, if not improving as expected, or if other problems arise. Prescription Medications: Hydrocodone/APAP 5mg / 325mg: take 1-2 orally every 6 hours as needed for pain. Dispense ten (10). No refill. Follow-up: Follow up with doctor Follow up tomorrow afternoon, in the emergency dept, for your next dose of antibiotics. Understanding of the discharge instructions verbalized by patient. (Electronically signed by Odette Capps MD 05/10/2016 8:52)
--- NOTE | 2016-05-06 17:13 | ED NURSING NOTES ---
Clinical Report - [facility] [address] [place] [address] 05/06/2016 11:51 Patient: VALENTIN GERBER JR TRIAGE Triage time 1155. Acuity: LEVEL 3. Chief Complaint: TENDER AREA. 11:55. --12:07 Ashley Olivo R.N. 11:55 05/06/16. BP: 108/77. HR: 92. RR: 24. O2 saturation: 100%. Temp: 98 F. Pain level now: 12/25. --12:07 Ashley Olivo R.N. Weight: 122.4 kg stated. Height/Length: 76 inches Per Patient. BMI: 32.9. --12:04 Ashley Olivo R.N. Medications None. --12:08 Ashley Olivo R.N. Allergies No Known Drug Allergy. --12:04 Ashley Olivo R.N. History Arrived by private vehicle. Historian: patient. Accompanied by (sister). Primary physician (Davina). Reported as (left kerr area). ( Pt left AMA from [facility] yesterday, has not had antibiotics since then. states pain has gotten worse, having difficulty sleeping and walking). SOCIAL HX: Heavy tobacco smoker (cigarette)- less than 1 pack per day. History of drug use: marijuana. No alcohol use. --12:07 Ashley Olivo R.N. PROBLEMS: Degenerative Joint Disease. Lumbar Strain. Myofascial Strain. Brain Aneurysm. Chronic Back Pain. Coronary Artery Disease. Sciatica. Intervertebral Disc Disease. Arthritis. --12:05 Ashley Olivo R.N. ADDITIONAL SURGERIES: Brain surgery. --12:05 Ashley Olivo R.N. Interventions ID band on patient. To treatment room. --12:07 Ashley Olivo R.N. PHYSICAL ASSESSMENT 11:55. To room via wheelchair. Patient gowned. GENERAL / NEURO / PSYCH: Alert. Appears in pain. Oriented X 4. RESPIRATORY: Respirations not labored. CVS: Capillary refill less than 2 seconds. SKIN: Drainage. Skin tenderness present. Increased warmth present. Erythema present. --12:08 Ashley Olivo R.N. 12:50 05/06/16. SKIN: Skin lesion on the right hand, right middle finger and left leg- draining present on right hand, dressing still in place on left kerr. --12:50 Lelo Wade R.N. NURSING PROGRESS NOTES 11:55. Patient gowned. Head of bed elevated. Reassurance given. Patient identifiers checked. Call light placed in reach. Side rails up. Bed placed in lowest position. Patient ready for evaluation- chart flagged. --12:07 Ashley Olivo R.N. 12:48 05/06/2016 Site #1 started via IV in the right upper arm with an 20g angiocath, with aseptic technique and good blood return; one attempt. Saline lock flushed with 10 mL saline (unable to draw rainbow, if labs ordered, will need to call lab). --12:48 Lelo Wade R.N. 13:53 05/06/2016 Started bag #1 1000 mL IV Fluids IV NS (Saline); at 150 mL/hr over 7 hour(s) via site #1 via IV pump. IV patency established. IV site checked: no pain, redness, or swelling. IV flushed thoroughly pre- and post-medication administration. --14:11 Ashley Olivo R.N. 13:54 05/06/2016 Dilaudid (HYDROmorphone HCl PF) IVP 2 mg given over 1 minute(s) via site #1. IV patency established. IV site checked: no pain, redness, or swelling. IV flushed thoroughly pre- and post-medication administration. IVP given by RN. --14:09 Ashley Olivo R.N. 13:51 05/06/16. BP: 92/57. HR: 72. RR: 20. O2 saturation: 94% on room air. Temp: deferred. Pain level now: 7/10. Additional comments: pt states pain better after dilaudid , but c/o pain at IV site. Site had good blood return, and flow well to gravity. . --14:23 Ashley Olivo R.N. 13:54 05/06/2016 Zofran (Ondansetron HCl) IVP 4 mg given over 1 minute(s) via site #1. IV patency established. IV site checked: no pain, redness, or swelling. IV flushed thoroughly pre- and post-medication administration. IVP given by RN. --14:25 Ashley Olivo R.N. 14:16 05/06/2016 Started 1 gm of Vancomycin IVPB in bag #1 200 mL; at 200 mL/hr over 1 hour(s) via site #1 via IV pump. (will run 1Gm IVPB, and then 2nd bag of 1 Gm IVPB consecutively). --14:21 Ashley Olivo R.N. 14:23 05/06/16. Care transferred and report given (Pratima Durham EDRN). --14:23 Ashley Olivo R.N. 14:24 05/06/16. BP: 145/66. HR: 74. RR: 18. O2 saturation: 97%. Temp: deferred. Pain level now: 08/25. --14:26 Ashley Olivo R.N. 15:18 05/06/2016 Vancomycin IVPB Bag Change: bag #1 infused. Total amount infused: 200. STARTED bag #2 at 200 mL/hr via IV pump. IV patency established. IV site checked: no pain, redness, or swelling. IV flushed thoroughly. (bat #2 of Vancomycin 1 Gm IVPB started). --15:23 Ashley Olivo R.N. 15:18 05/06/16. BP: 111/50. HR: 78. RR: 16. O2 saturation: 98% on room air. Temp: deferred. Pain level now: 09/24. Additional comments: pt sleeping before IV went off, states pain is 7-810 . --15:29 Ashley Oilvo R.N. 15:35. ( Pt up at bedside, voided 250cc dark iban urine). --15:40 Ashley Olivo R.N. 16:29 05/06/2016 Vancomycin IVPB Discontinued: bag #2 infused. Total amount infused: 200 mL. IV patency established. IV site checked: no pain, redness, or swelling. IV flushed thoroughly. --16:39 Ashley Olivo R.N. 16:36 05/06/2016 Dilaudid (HYDROmorphone HCl PF) IVP 2 mg given over 1 minute(s) via site #1. Sedative warning given to the patient. IV patency established. IV site checked: no pain, redness, or swelling. IV flushed thoroughly pre- and post-medication administration. IVP given by RN. --16:41 Ashley Olivo R.N. 16:35 05/06/16. BP: 124/72. HR: 80. RR: 22. O2 saturation: 97% on room air. Temp: deferred. Pain level now: 11/25. --16:42 Ashley Olivo R.N. 17:03 05/06/2016 IV Saline Lock Drip IV Continued: upon admission at the rate of 0 mL/hr. 0 mL remaining bag #1. IV patency established. IV site checked: no pain, redness, or swelling. IV flushed thoroughly. --17:03 Ashley Olivo R.N. 16:35. ( Pt asking for additional pain meds. ERMD notified, meds ordered and given.). --17:04 Ashley Olivo R.N. 17:00. ( Pt now asking for food. ERMD approved, pt given soup and sandwich. Pt states pain 09/24 now). --17:18 Ashley Olivo R.N. 17:18 05/06/16. ( Pt c/o IV site pain. Site appears good, and fluids are infusing well, however pt is demanding that site be changed. ERMD notified). --17:18 Ashley Olivo R.N. ( H/P on chart). --17:23 Camila Lau ER TechZelda 17:45 05/06/2016 Site #1 removed. Bandage applied (Pt not tolerating the IV site.). --18:17 Valentin Albarado R.N. 18:15 05/06/2016 Site #2 started via IV in the left antecubital space with an 20g angiocath, with aseptic technique and good blood return; one attempt. Saline lock flushed with 10 mL saline. --18:17 Valentin Albarado R.N. 18:33 05/06/2016 Daptomycin * IVPB 400mg --18:38 Ashley Olivo R.N. 18:15 IV site changed by GERALD Alejandro. waiting on antibiotics to come from floor Pt given dinner tray. --19:51 Ashley Olivo R.N. 18:51 05/06/2016 Daptomycin IVPB Discontinued: bag #1 infused upon discharge. Total amount infused: 50 mL. IV patency established. IV site checked: no pain, redness, or swelling. IV flushed thoroughly. (site flushed with saline and then heparin. dressing sleeve applied over site since pt going to return tomorrow for additional meds as an outpt). --19:52 Ashley Olivo R.N. 18:53 05/06/2016 Site #[address] upon discharge. Flushed with saline. --19:53 Ashley Olivo R.N. 18:55 05/06/2016 IV Fluids IV NS Discontinued: bag #1 STOPPED upon discharge. Total amount infused: 800 mL. IV patency established. IV site checked: no pain, redness, or swelling. IV flushed thoroughly. --19:54 Ashley Olivo R.N. 18:40. ( wound care , dressing applied to wound on right hand. pt states that that had a dressing on it earlier, but it got caught on something and pulled off.). --20:02 Ashley Olivo R.N. 18:55. ( IVPB complete, site flushed with saline and heparin and then stretched mesh sleeve placed over site for home). --20:02 Ashley Olivo R.N. DISPOSITION / DISCHARGE Condition at departure: improved and stable. No learning barriers present. Discharge instructions provided and reviewed with the patient and family. Reviewed medication(s) (vicodin). Patient and family verbalized understanding. Written instructions provided in Senegalese. ( return tomorrow afternoon for outpatient IV antibiotics. May use [facility] to get here tomorrow --going to floor, not ED). The patient was discharged home and accompanied by family. He left the Emergency Department ambulatory and via private vehicle. Family member driving. --20:01 Ashley Olivo R.N. 19:05 05/06/16. BP: 120/72. HR: 80. RR: 22. O2 saturation: 97%. Temp: deferred. Pain level now: 09/24. --20:01 Ashley Olivo R.N. Locked/Released at 05/06/2016 20:16 by Ashley Olivo R.N.
--- NOTE | 2016-05-06 17:13 | ED ORDER SUMMARY ---
..... Patient: VALENTIN GERBER JR OrderSheet [facility] VisitID: [id number] [address] [place] [address] 55y, M Registration Date/Time: 05/06/2016 ORDER SHEET Weight: 122.4 kg (stated) Allergies: No Known Drug Allergy GENERAL ORDERS: CBC w Diff Urgent (13:00 05/06/2016 DDean R.N. per protocol) (13:03 LNations ER Tech1) BMP Urgent (13:00 05/06/2016 DDean R.N. per protocol) (13:03 LNations ER Tech1) Diet (Please order in [facility]) (Regular Diet) (17:13 05/06/2016 LNations ER Tech1 verbal order read back to Elaine CLARKE) (17:13 LNations ER Tech1) MEDICATION ORDERS: Dilaudid IM 1 mg (HIGH ALERT MEDICATION, NOW) (13:39 05/06/2016 Elaine CLARKE) (Cancelled: Other13:40 Elaine CLARKE) - (400mg IV x 1) (17:30 05/06/2016 Elaine CLARKE) (Cancelled: Other17:39 Elaine CLARKE) - (Daptomycin 400mg IV x 1) (17:40 05/06/2016 Elaine CLARKE) (18:38 DDean R.N.) IV FLUIDS: IV Saline Lock (12:47 05/06/2016 LSullivan R.N. verbal order read back to Elaine CLARKE) (12:48 LSullivan R.N.) Vancomycin IV 1.5 gm/500 mL (NOW) (13:39 05/06/2016 Elaine CLARKE) (Ack 13:54 DDean R.N.) (Cancelled: Other14:17 MWinterer R.N.) Dilaudid IV 2 mg (HIGH ALERT MEDICATION, NOW) (13:40 05/06/2016 Elaine CLARKE) (Ack 13:53 DDean R.N.) (14:09 DDean R.N.) IV NS : initial bolus none -, then 150 mL/hr for X1 (NOW) (14:10 05/06/2016 DDean R.N. per protocol) (14:11 DDean R.N.) Vancomycin IV 2 gm/500 mL (NOW) (14:17 05/06/2016 MWinterer R.N. verbal order read back to Elaine CLARKE) (Ack 14:18 MWinterer R.N.) (14:21 DDean R.N.) Zofran IV 4 mg (NOW) (14:24 05/06/2016 DDean R.N. per protocol) (14:25 DDean R.N.) Dilaudid IV 2 mg (HIGH ALERT MEDICATION, NOW) (16:33 05/06/2016 Elaine CLARKE) (16:41 DDean R.N.) Dilaudid IV 2 mg (NOW) (16:40 05/06/2016 DDean R.N. verbal order read back to Elaine CLARKE) (Cancelled: Duplicate Order16:40 DDean R.N.) ORDER SHEET NOTES: [Electronically signed by Ashley Olivo R.N. (20:16 05/06/2016)] [Electronically signed by Odette Capps MD (08:52 05/10/2016)] [Electronically locked/signed by Ashley Olivo R.N. (20:16 05/06/2016)]
--- NOTE | 2016-05-06 17:13 | ED CLINICAL REPORT ---
Clinical Report - Physicians/Mid Levels [facility] [address] [place] [address] 05/06/2016 11:51 Patient: VALENTIN GERBER JR Time Seen: 12:42. Arrived- By private vehicle. Historian- patient. HISTORY OF PRESENT ILLNESS Chief Complaint: (cellulitis, L leg pain). This started about 1 week ago and is still present. It is described as painful. It has been located on the left lower extremity. No cause has been identified. He has recently taken medication (PT was on vancomycin, and recently in the hospital. He left AMA yesterday.). Similar symptoms previously: None. Recent medical care: The patient was seen recently at this facility and hospitalized. REVIEW OF SYSTEMS No fever, chills, sore throat, cough or difficulty breathing. No hoarseness, enlarged lymph nodes, headache, eye irritation or chest pain. No abdominal pain, nausea, diarrhea, difficulty with urination or joint pain. No vomiting. All systems otherwise negative, except as recorded above. PAST HISTORY Problems: Degenerative Joint Disease. Tetanus Status. Brain Aneurysm. Chronic Back Pain. Coronary Artery Disease. Immunizations. Sciatica. Intervertebral Disc Disease. Arthritis. Additional Surgeries: Brain surgery. Medications: None. Allergies: No Known Drug Allergy. SOCIAL HISTORY Smoker- current status unknown. History of drug use: marijuana. No alcohol use. ADDITIONAL NOTES The nursing notes have been reviewed. PHYSICAL EXAM Vital Signs: 05/06/2016 11:55 BP: 108/77. HR: 92. RR: 24. O2 saturation: 100%. Temp: 98 F. Pain level now: 1010. Have been reviewed. Appearance: Alert. Oriented X3. No acute distress. Eyes: Pupils equal, round and reactive to light. Conjunctivae and eyelids normal. ENT: Nose normal. Neck: Neck supple. CVS: Normal heart rate and rhythm. Heart sounds normal. Respiratory: No respiratory distress. Breath sounds normal. Abdomen: Nontender. No organomegaly. Skin: Large area of cellulitis with tenderness, erythema and warmth to left leg (PT has a wound care dressing over a small ulcer on his L lateral lower leg. Cellulitis extends from several cm below the pt's knee to the ankle, and is nearly circumferential. No fluctuance or induration.). Extremities: (Cellulitis, as above; no other abnormalities.). Neuro: Oriented X 3. No motor deficit. No sensory deficit. LABS, X-RAYS, AND EKG Laboratory Tests: CBC w Diff: (XOCHILT: 05/06/2016 13:23) ( [facility] 13[facility]38) Final results Test Result Flag Units (Reference) WHITE BLOOD COUNT 11.7 H K/uL (4.5-11.5) RED BLOOD COUNT 4.67 M/uL (4.50-5.90) HEMOGLOBIN 13.5 gm/dL (13.5-17.5) HEMATOCRIT 40.4 L % (41.0-53.0) MEAN CELL VOLUME 87 fL (80-100) MEAN CORPUSCULAR HGB 29 pg (26-34) MEAN CORPUSCULAR HGB CONC 34 g/dL (31-37) RED CELL DISTRIBUTION WIDTH 12.6 % (11.6-14.8) PLATELET COUNT 303 K/uL (150-400) NEUTROPHIL % 73.8 % (50-75) LYMPH % 12.5 L % (25-40) MONO % 10.9 % (3-14) EOSINOPHIL % 2.4 % (0-4) BASOPHIL % 0.4 % (0-2) BMP: (XOCHILT: 05/06/2016 13:23) ( [facility] 05/06/2016 14:55) Final results Test Result Flag Units (Reference) GLUCOSE 109 mg/dL (70-110) BUN 12 mg/dL (7-18) CREATININE 1.0 mg/dL (0.6-1.3) Estimated GFR >60 mL/min Estimated GFR- >60 mL/min Note: Persistent reduction over 3 months in eGFR<60 mL/min/1.73 m2 defines CKD. Patients with eGFR values>=60 mL/min/1.73 m2 may also have CKD if evidence ofpersistent proteinuria. Additional information may be foundat www.[email or web address].org. SODIUM 141 mmol/L (136-145) POTASSIUM 4.4 # mmol/L (3.5-5.1) CHLORIDE 104 mmol/L (98-107) CARBON DIOXIDE 30 mmol/L (21-32) CALCIUM 8.7 mg/dL (8.5-10.1) . Pulse Oximetry: 05/06/2016 11:55 O2 saturation: 100%. (FIO2 - room air). Interpretation: normal. PROGRESS AND PROCEDURES Course of Care: PT was given IV vancomycin in the ED. Bloodwork showed a mildly elevated WBC count. I did speak with Dr. Guzman regarding admission, as pt stated he did not have transportation to come back for daily IV antibiotics as an outpatient. Dr. Guzman and Riccardo (nursing bleaching supervisor) were able to arrange [facility] and outpatient IV abx for the pt here. I did feel this was reasonable, as pt had no fever and a minimal leukocytosis, and did not appear clinically ill. Plan was explained to the pt, and he is aware that he will need to call tomorrow to set up a time for [employer] to pick him up. Patient counseled in person regarding the patient's stable condition, test results, diagnosis and need for follow-up. Concerns were addressed. Old medical records reviewed. Disposition: Discharged. Condition: stable. CLINICAL IMPRESSION Cellulitis of the left lower leg. INSTRUCTIONS (You will need to return tomorrow between noon and 6 pm, to receive your next dose of antibiotics. Please call [employer] ( ) to get a ride to the hospital tomorrow. When you check in at the front office attendant, tell them you are here to receive a dose of IV antibiotics. To help with pain, take the pain meds, as needed, and keep your leg elevated as much as possible.). Warnings: SEDATIVE MEDICATION: You were given sedative medication during your visit. Do not drive or operate dangerous machinery for 6 hours. GENERAL WARNINGS: Return or contact your physician immediately if your condition worsens or changes unexpectedly, if not improving as expected, or if other problems arise. Prescription Medications: Hydrocodone/APAP 5mg / 325mg: take 1-2 orally every 6 hours as needed for pain. Dispense ten (10). No refill. Follow-up: Follow up with doctor Follow up tomorrow afternoon, in the emergency dept, for your next dose of antibiotics. Understanding of the discharge instructions verbalized by patient. (Electronically signed by Odette Capps MD 05/10/2016 8:52)
--- NOTE | 2016-05-10 08:53 | ED DISCHARGE INSTRUCTIONS ---
Patient: VALENTIN GERBER JR General Instructions [facility] VisitID: [id number] [place] [address] 55y, M Registration Date/Time: 05/06/2016 Cellulitis of the left lower leg. INSTRUCTIONS (You will need to return tomorrow between noon and 6 pm, to receive your next dose of antibiotics. Please call [employer] ( ) to get a ride to the hospital tomorrow. When you check in at the vest front presser, tell them you are here to receive a dose of IV antibiotics. To help with pain, take the pain meds, as needed, and keep your leg elevated as much as possible.). Warnings: SEDATIVE MEDICATION: You were given sedative medication during your visit. Do not drive or operate dangerous machinery for 6 hours. GENERAL WARNINGS: Return or contact your physician immediately if your condition worsens or changes unexpectedly, if not improving as expected, or if other problems arise. Prescription Medications: Hydrocodone/APAP 5mg / 325mg: take 1-2 orally every 6 hours as needed for pain. Dispense ten (10). No refill. Follow-up: Follow up with doctor Follow up tomorrow afternoon, in the emergency dept, for your next dose of antibiotics. Understanding of the discharge instructions verbalized by patient. ADDITIONAL INFORMATION Cellulitis You have an infection of the skin known as cellulitis. This usually starts with a scrape, cut, insect bite, blister or other opening in the skin which becomes infected. This is a serious condition. It must be watched closely to be sure the infection is not spreading. With antibiotic treatment, the size of the red area will gradually shrink in size until the skin returns to normal. This will take 7-10 days. The red area should never increase in size once the antibiotic medicine has been started. Occasionally, an infection will be resistant to one antibiotic and another one will have to be used. Home Care: 1) Limit the use of the affected part, since excess movement can cause the infection to spread. 2) If the infection is on your leg, walk as little as possible during the first few days of the treatment. Keep your leg elevated while sitting. This will reduce swelling. 3) Take all of the antibiotic medicine exactly as directed until it is gone. Be careful not to miss any doses, especially during the first seven days. Follow Up with your doctor or this facility as directed. Check the infected area daily for the warning signs listed below. Get Prompt Medical Attention if any of the following occur: -- Spreading area of redness -- Increasing swelling or pain -- Appearance of pus or drainage -- Fever over 100.4 F (38.0 C) oral, or over 101.4 F (38.6 C) rectal, after two days on antibiotics You have been given the following additional information: Cellulitis (Electronically signed by Odette Capps MD 05/10/2016 8:52)
--- NOTE | 2016-05-10 08:53 | ED MAR SUMMARY ---
..... Medication Administration Record [facility] [address] [place] [address] Patient: VALENTIN GERBER Visit ID: [id number] 55y, M Weight: 122.4 kg Height/Length: 76 in BMI: 32.9 ALLERGIES: No Known Drug Allergy Start 13:53 05/06/2016 Ashley Olivo R.N., Stop 18:55 05/06/2016 Ashley Olivo R.N. Medication Administered: IV NS (SALINE), Dose: IV Fluids over 7 hour(s), Rate: 150 mL/hr, Dispensed: 1000 mL bag, Site: #1 right upper arm. Medication Ordered: IV NS : initial bolus none -, then 150 mL/hr for X1 (NOW). Given 13:54 05/06/2016 Ashley Olivo R.N. Medication Administered: ZOFRAN [IVP] (ONDANSETRON HCL), Dose: 4 mg IVP over 1 minute(s), Site: #1 right upper arm. Medication Ordered: Zofran IV 4 mg (NOW). Given 13:54 05/06/2016 Ashley Olivo R.N. Medication Administered: DILAUDID [IVP] (HYDROMORPHONE HCL PF), Dose: 2 mg IVP over 1 minute(s), Site: #1 right upper arm. Medication Ordered: Dilaudid IV 2 mg (HIGH ALERT MEDICATION, NOW). Start 14:16 05/06/2016 Ashley Olivo R.N., Stop 16:29 05/06/2016 Ashley Olivo R.N. Medication Administered: VANCOMYCIN [IVPB], Dose: 1 gm IVPB over 1 hour(s), Rate: 200 mL/hr, Dispensed: 200 mL bag, Site: #1 right upper arm. Medication Ordered: Vancomycin IV 2 gm/500 mL (NOW). Given 16:36 05/06/2016 Ashley Olivo R.N. Medication Administered: DILAUDID [IVP] (HYDROMORPHONE HCL PF), Dose: 2 mg IVP over 1 minute(s), Site: #1 right upper arm. Medication Ordered: Dilaudid IV 2 mg (HIGH ALERT MEDICATION, NOW). Start 18:33 05/06/2016 Geovani, Ashley RAdrianoN., Stop 18:51 05/06/2016 Ashley Olivo R.N. Medication Administered: Daptomycin *, Dose: 400mg * IVPB. Medication Ordered: - (Daptomycin 400mg IV x 1).
--- NOTE | 2016-05-10 08:53 | ED DISCHARGE INSTRUCTIONS ---
Patient: VALENTIN GERBER JR General Instructions [facility] VisitID: [id number] [place] [address] 55y, M Registration Date/Time: 05/06/2016 Cellulitis of the left lower leg. INSTRUCTIONS (You will need to return tomorrow between noon and 6 pm, to receive your next dose of antibiotics. Please call [email or web address] ( ) to get a ride to the hospital tomorrow. When you check in at the [employer] front desk clerk, tell them you are here to receive a dose of IV antibiotics. To help with pain, take the pain meds, as needed, and keep your leg elevated as much as possible.). Warnings: SEDATIVE MEDICATION: You were given sedative medication during your visit. Do not drive or operate dangerous machinery for 6 hours. GENERAL WARNINGS: Return or contact your physician immediately if your condition worsens or changes unexpectedly, if not improving as expected, or if other problems arise. Prescription Medications: Hydrocodone/APAP 5mg / 325mg: take 1-2 orally every 6 hours as needed for pain. Dispense ten (10). No refill. Follow-up: Follow up with doctor Follow up tomorrow afternoon, in the emergency dept, for your next dose of antibiotics. Understanding of the discharge instructions verbalized by patient. ADDITIONAL INFORMATION Cellulitis You have an infection of the skin known as cellulitis. This usually starts with a scrape, cut, insect bite, blister or other opening in the skin which becomes infected. This is a serious condition. It must be watched closely to be sure the infection is not spreading. With antibiotic treatment, the size of the red area will gradually shrink in size until the skin returns to normal. This will take 7-10 days. The red area should never increase in size once the antibiotic medicine has been started. Occasionally, an infection will be resistant to one antibiotic and another one will have to be used. Home Care: 1) Limit the use of the affected part, since excess movement can cause the infection to spread. 2) If the infection is on your leg, walk as little as possible during the first few days of the treatment. Keep your leg elevated while sitting. This will reduce swelling. 3) Take all of the antibiotic medicine exactly as directed until it is gone. Be careful not to miss any doses, especially during the first seven days. Follow Up with your doctor or this facility as directed. Check the infected area daily for the warning signs listed below. Get Prompt Medical Attention if any of the following occur: -- Spreading area of redness -- Increasing swelling or pain -- Appearance of pus or drainage -- Fever over 100.4 F (38.0 C) oral, or over 101.4 F (38.6 C) rectal, after two days on antibiotics You have been given the following additional information: Cellulitis (Electronically signed by Odette Capps MD 05/10/2016 8:52)
--- NOTE | 2016-05-10 08:53 | ED MED RECONCILIATION SUMMARY ---
Patient: VALENTIN GERBER JR Medication Reconciliation Report [facility] VisitID: [id number] [address] [place] [address] 55y, M Registration Date/Time: 05/06/2016 Weight: 122.4 kg Height/Length: 76 in. BMI: 32.9 ALLERGIES: No Known Drug Allergy The patient's Home Medications are listed below: NONE. The source(s) of the original Home Medication information: Not obtained. The following Medications were given to the patient in the Emergency Department: Dilaudid [IVP] IVP 2 mg, administered: 05/06/2016 1:54:00 PM IV NS IV Fluids bolus 0, then 150 mL/hr, administered: 05/06/2016 1:53:00 PM Vancomycin [IVPB] IVPB bolus 0, then 1 gm 200 mL/hr, administered: 05/06/2016 2:16:00 PM Zofran [IVP] IVP 4 mg, administered: 05/06/2016 1:54:00 PM Dilaudid [IVP] IVP 2 mg, administered: 05/06/2016 4:36:00 PM Daptomycin IVPB bolus 0, then 400mg, administered: 05/06/2016 6:33:00 PM The following Medications were prescribed to the patient: Hydrocodone/APAP 5mg / 325mg: take 1-2 orally every 6 hours as needed for pain. Dispense ten (10). No refill. -- Odette Capps MD
--- NOTE | 2016-05-10 08:53 | ED MED RECONCILIATION SUMMARY ---
Patient: VALENTIN GERBER JR Medication Reconciliation Report [facility] VisitID: [id number] [address] [place] [address] 55y, M Registration Date/Time: 05/06/2016 Weight: 122.4 kg Height/Length: 76 in. BMI: 32.9 ALLERGIES: No Known Drug Allergy The patient's Home Medications are listed below: NONE. The source(s) of the original Home Medication information: Not obtained. The following Medications were given to the patient in the Emergency Department: Dilaudid [IVP] IVP 2 mg, administered: 05/06/2016 1:54:00 PM IV NS IV Fluids bolus 0, then 150 mL/hr, administered: 05/06/2016 1:53:00 PM Vancomycin [IVPB] IVPB bolus 0, then 1 gm 200 mL/hr, administered: 05/06/2016 2:16:00 PM Zofran [IVP] IVP 4 mg, administered: 05/06/2016 1:54:00 PM Dilaudid [IVP] IVP 2 mg, administered: 05/06/2016 4:36:00 PM Daptomycin IVPB bolus 0, then 400mg, administered: 05/06/2016 6:33:00 PM The following Medications were prescribed to the patient: Hydrocodone/APAP 5mg / 325mg: take 1-2 orally every 6 hours as needed for pain. Dispense ten (10). No refill. -- Odette Capps MD
--- NOTE | 2016-05-10 08:53 | ED MAR SUMMARY ---
..... Medication Administration Record [facility] [address] [place] [address] Patient: VALENTIN GERBER Visit ID: [id number] 55y, M Weight: 122.4 kg Height/Length: 76 in BMI: 32.9 ALLERGIES: No Known Drug Allergy Start 13:53 05/06/2016 Ashley Olivo R.N., Stop 18:55 05/06/2016 Ashley Olivo R.N. Medication Administered: IV NS (SALINE), Dose: IV Fluids over 7 hour(s), Rate: 150 mL/hr, Dispensed: 1000 mL bag, Site: #1 right upper arm. Medication Ordered: IV NS : initial bolus none -, then 150 mL/hr for X1 (NOW). Given 13:54 05/06/2016 Ashley Olivo R.N. Medication Administered: ZOFRAN [IVP] (ONDANSETRON HCL), Dose: 4 mg IVP over 1 minute(s), Site: #1 right upper arm. Medication Ordered: Zofran IV 4 mg (NOW). Given 13:54 05/06/2016 Ashley Olivo R.N. Medication Administered: DILAUDID [IVP] (HYDROMORPHONE HCL PF), Dose: 2 mg IVP over 1 minute(s), Site: #1 right upper arm. Medication Ordered: Dilaudid IV 2 mg (HIGH ALERT MEDICATION, NOW). Start 14:16 05/06/2016 Ashley Olivo R.N., Stop 16:29 05/06/2016 Ashley Olivo R.N. Medication Administered: VANCOMYCIN [IVPB], Dose: 1 gm IVPB over 1 hour(s), Rate: 200 mL/hr, Dispensed: 200 mL bag, Site: #1 right upper arm. Medication Ordered: Vancomycin IV 2 gm/500 mL (NOW). Given 16:36 05/06/2016 Ashley Olivo R.N. Medication Administered: DILAUDID [IVP] (HYDROMORPHONE HCL PF), Dose: 2 mg IVP over 1 minute(s), Site: #1 right upper arm. Medication Ordered: Dilaudid IV 2 mg (HIGH ALERT MEDICATION, NOW). Start 18:33 05/06/2016 Geovani, Ashley RAdrianoN., Stop 18:51 05/06/2016 Ashley Olivo R.N. Medication Administered: Daptomycin *, Dose: 400mg * IVPB. Medication Ordered: - (Daptomycin 400mg IV x 1).
== END 2016-05-06 19:05 | disposition home or self-care (01) ==
LOC: ED SRH 11:49
DX: L03.116 Cellulitis of left lower limb (principal)
CPT/HCPCS: 90047; 90074; 95059